=== PATIENT | male | born 1975 | race African-American/Black ===

== ENCOUNTER 2022-10-13 11:42 | Emergency (ER) | payer SELFPAY ==
[~2022-10-13] VITALS: Ht 185.4 cm; Wt 69.0 kg
[2022-10-13 12:03] VITALS: BP 122/77; PULSE 77; RESP 18; O2SAT 100
[2022-10-13] MEDS ORDERED: ACET-2708 MT (13:11)
[2022-10-13] MEDS ORDERED: CYCL10TA21 MT (13:11)
[2022-10-13 13:15] VITALS: TEMP 98
[2022-10-13] MEDS ORDERED: ACETAMINOPHEN 325MG TABLET PO ONE (13:15)
[2022-10-13] MEDS ORDERED: CYCLOBENZAPRINE 10MG TABLET PO ONE (13:15)
== END 2022-10-13 14:05 | disposition home or self-care (01) ==
LOC: ER 11:42
DX: M54.2 Cervicalgia (principal); Z88.6 Allergy status to analgesic agent
CPT/HCPCS: 99283